=== PATIENT | male | born 1985 | race American Indian/Alaskan Native ===

== ENCOUNTER 2019-05-24 18:22 | Emergency (ER) | payer SELFPAY ==
--- NOTE | 2019-05-24 19:55 | Emergency Department Report ---
Blank Doc - Documentation Documentation: 34-year-old male that presents woith left leg pain and swelling. This initial assessment/diagnostic orders/clinical plan/treatment(s) is/are subject to change based on patient's health status, clinical progression and re- assessment by fellow clinical providers in the ED. Further treatment and workup at subsequent clinical providers discretion. Patient/guardians urged not to elope from the ED as their condition may be serious if not clinically assessed and managed. Initial orders include: 1- Patient sent to [facility] for further evaluation and treatment 2- US doppler
[2019-05-24 20:36] VITALS: BP 138/89
[2019-05-24] MEDS: KETOROLAC 30 MG/1 ML INJ IM ONE (21:13)
--- NOTE | 2019-05-24 21:25 | XRay Report ---
LEFT TIBIA/FIBULA, 4 VIEWS INDICATION / CLINICAL INFORMATION: MAIN: let leg pain X 2 WEEKS; NO KNOWN INJURY. COMPARISON: None available. FINDINGS: The tibia and fibula are intact and without significant osseous abnormality. No soft tissue abnormali ty noted. Impression: Negative exam. Signer Name: Carrol Orozco MD Signed: 05/24/2019 9:20 PM Workstation Name: [id number]
--- NOTE | 2019-05-24 22:19 | Emergency Department Report ---
HPI - General Chief Complaint: Extremity Problem,Nontraumatic Time Seen by Provider: 05/24/19 19:54 - HPI HPI: 34-year-old -[place] male presents to the emergency department with a complaint of a two-week history of left foot and lower leg pain and swelling. He denies any fall or recent trauma or any inciting event. He denies any recent travel, immobility or any recent surgery. He has not taken anything for his symptoms prior to presentation. Denies any past medical history. No PCP. ED Past Medical Hx - Past Medical History Previous Medical History?: No - Surgical History Past Surgical History?: No - Social History Smoking Status: Never Smoker Substance Use Type: None - Medications Home Medications: Home Medications Medication Instructions Recorded Confirmed Last Taken Type Apixaban [Eliquis] 5 mg PO BID #74 tablet 05/24/19 Unknown Rx ED Review of Systems ROS: Stated complaint: LLE SWELLING/PAIN Other details as noted in HPI Comment: All other systems reviewed and negative Constitutional: denies: chills, fever Respiratory: denies: shortness of breath Cardiovascular: denies: chest pain Gastrointestinal: denies: abdominal pain, vomiting Musculoskeletal: joint swelling, arthralgia, myalgia Skin: denies: rash, lesions Neurological: denies: numbness, paresthesias Physical Exam - Physical Exam Vital Signs: Vital Signs 05/24/19 05/24/19 18:41 20:35 Temperature 99.3 F Pulse Rate 83 64 Respiratory 16 16 Rate Blood Pressure 167/101 Blood Pressure 138/89 [Left] O2 Sat by Pulse 96 99 Oximetry Physical Exam: GENERAL: The patient is well-developed well-nourished. HEENT: Normocephalic. Atraumatic. Patient has moist mucous membranes. EYES: Extraocular motions are intact. NECK: Supple. Trachea is midline. CHEST/LUNGS: Clear to auscultation. There is no respiratory distress noted. HEART/CARDIOVASCULAR: Regular. There is no tachycardia. ABDOMEN: Abdomen is soft, nontender. Patient has normal bowel sounds. There is no abdominal distention. SKIN:Skin is warm and dry. [id number] nonpitting swelling of the left lower extremity from the knee distally. NEURO: The patient is awake, alert, and oriented. The patient is cooperative. The patient has no focal neurologic deficits. Normal speech. MUSCULOSKELETAL: There is some left calf tenderness to palpation. There is no evidence of acute injury. ED Course Vital Signs 05/24/19 05/24/19 18:41 20:35 Temperature 99.3 F Pulse Rate 83 64 Respiratory 16 16 Rate Blood Pressure 167/101 Blood Pressure 138/89 [Left] O2 Sat by Pulse 96 99 Oximetry ED Medical Decision Making - Radiology Data Radiology results: report reviewed, image reviewed interpreted by me: X-ray of the left tib-fib does not show any fracture, dislocation, or any acute process. DUPLEX DOPPLER LOWER EXTREMITY VEINS, LEFT INDICATION / CLINICAL INFORMATION: left leg pain and swelling. TECHNIQUE: Duplex doppler imaging was performed through the veins of the left lower extremity using venous compression and other maneuvers. COMPARISON: None available. FINDINGS: COMMON FEMORAL VEIN: Negative. FEMORAL VEIN: Negative. POPLITEAL VEIN: Nonocclusive DVT is noted in the popliteal vein. CALF VEINS: DVT is also noted within the deep calf veins. ADDITIONAL FINDINGS: None. IMPRESSION: 1. Exam is positive for nonocclusive DVT within the left lower extremity, as outlined above. - Medical Decision Making Patient presents with a history of left lower leg and foot pain and swelling. X-ray of the tib-fib did not show any fracture, dislocation, or any other acute process. Venous Doppler ultrasound shows nonocclusive DVT within the left lower extremity from the popliteal distally. Patient will be placed on anticoagulation and given referral for vascular surgery. Vital signs stable. No complaints of any chest pain, back pain or shortness of breath. He will return with any worsening of his symptoms or any acute distress. - Differential Diagnosis DVT, occult fracture, muscle strain, venous stasis Critical Care Time: No Critical care attestation.: If time is entered above; I have spent that time in minutes in the direct care of this critically ill patient, excluding procedure time. ED Disposition Clinical Impression: Left leg DVT Qualifiers: Affected thrombotic vein of extremity: unspecified vein of extremity Chronicity: unspecified Qualified Code(s): I82.402 - Acute embolism and thrombosis of unspecified deep veins of left lower extremity Disposition: - TO HOME OR SELFCARE Is pt being admited?: No Condition: Stable Instructions: Deep Venous Thrombosis (ED) Additional Instructions: I'm giving him a referral for a local vascular surgeon, Dr. Varma, to follow up regarding the DVT/blood clots in your left leg. Take the anticoagulation as prescribed. Please be extra cautious as you are now on blood thinners and therefore you are more prone to bleeding with any type of cut, abrasion or injury. Please return to the emergency department immediately with any worsening of your symptoms, development of chest pain or shortness of breath, or with any acute distress. Prescriptions: Apixaban [Eliquis] 5 mg PO BID #74 tablet Referrals: COOKIE VARMA MD [Staff Physician] - 2-3 Days Time of Disposition: 23:03
--- NOTE | 2019-05-24 22:56 | Vascular Lab Report ---
DUPLEX DOPPLER LOWER EXTREMITY VEINS, LEFT INDICATION / CLINICAL INFORMATION: left leg pain and swelling. TECHNIQUE: Duplex doppler imaging was performed through the veins of the left lower extremity using venous compr ession and other maneuvers. COMPARISON: None available. FINDINGS: COMMON FEMORAL VEIN: Negative. FEMORAL VEIN: Negative. POPLITEAL VEIN: Nonocclusive DVT is noted in the popliteal vein. CALF VEINS: DVT is also noted within the deep calf veins. ADDITIONAL FINDINGS: None. IMPRESSION: 1. Exam is positive for nonocclusive DVT within the left lower extremity, as outlined above. Signer Name: Carrol Orozco MD Signed: 05/24/2019 10:52 PM Workstation Name: [id number]
[2019-05-24] MEDS: APIXABAN 5 MG TAB PO ONE (23:08)
== END 2019-05-24 23:43 | disposition home or self-care (01) ==
LOC: ED 18:22
DX: I82.402 Acute embolism and thrombosis of unspecified deep veins of left lower extremity (principal); Z79.899 Other long term (current) drug therapy
CPT/HCPCS: 73590; 93971; 96372; 99284; J1885